=== PATIENT | male | born 1950 | race Caucasian/White ===

== ENCOUNTER → 2019-01-13 12:10 | Outpatient (CLI) | payer MEDICARE, SELFPAY ==
--- NOTE | 2019-01-13 12:13 | DI.RAD.S_ITS ---
PROCEDURE: XR KNEE LT 3V INDICATIONS: Knee pain TECHNIQUE: 3 views of the knee were acquired. COMPARISON: [facility], , KNEE 3V LEFT, 03/17/2007, 9:28. FINDINGS: Bones: No fractures or dislocations. No suspicious bony lesions. There is chondrocalcinosis. There is tricompartmental knee joint degeneration, most pronounced in the patellofemoral joint. Soft tissues: No joint effusion. Probable intra-articular body in the anterior lateral aspect of the knee joint. IMPRESSION: 1. Degenerative joint disease and chondrocalcinosis. Differential diagnosis includes CPPD. Recommend clinical correlation. 2. Possible intra-articular body in the anterior lateral aspect of knee joint. Dictated by: Jamin Ngo M.D. on 01/13/2019 at 17:12 Approved by: Jamin Ngo M.D. on 01/13/2019 at 17:13
--- NOTE | 2019-01-13 12:13 | DI.RAD.S_ITS ---
PROCEDURE: XR KNEE RT 3V INDICATIONS: Knee pain TECHNIQUE: 3 views of the knee were acquired. COMPARISON: [facility], , KNEE 3V RIGHT, 03/17/2007, 9:41. None. FINDINGS: Bones: No fractures or dislocations. No suspicious bony lesions. There is chondrocalcinosis. Tricompartmental joint space narrowing and osteophyte formation, most pronounced in the patellofemoral joint, increased compared to 03/17/2007. Soft tissues: No joint effusion. No suspicious soft tissue calcifications. IMPRESSION: Chondrocalcinosis and degenerative changes in right knee. CPPD is a diagnostic possibility. Recommend clinical correlation. Dictated by: Jamin Ngo M.D. on 01/13/2019 at 17:09 Approved by: Jamin Ngo M.D. on 01/13/2019 at 17:11
== END ==
PROVIDERS: Family Provider Family Medicine; PCP Family Medicine; Visit Provider Family Medicine
DX: M25.561 Pain in right knee (principal); M25.562 Pain in left knee; M17.12 Unilateral primary osteoarthritis, left knee; M11.262 Other chondrocalcinosis, left knee; M11.261 Other chondrocalcinosis, right knee
CPT/HCPCS: 73562

== ENCOUNTER → 2019-06-29 12:32 | Outpatient (CLI) | payer MEDICARE, SELFPAY ==
[2019-06-29 13:05] LABS: Add Manual Diff / Slide Review NO; Basophils Absolute Auto 0 /uL (0-100); Basophils Percent Auto 0.2 % (0-2); Eosinophils Absolute Auto 0 /uL (0-450); Eosinophils Percent Auto 0.1 % (2-4); Hematocrit 44.4 % (41-53); Hemoglobin 15.2 g/dL (13.5-17.5); Lymphocytes Absolute Auto 400 /uL (1100-4500); Lymphocytes Percent Auto 2.5 % (25-40); Mean Corpuscular HGB Conc 34.2 % (30-36); Mean Corpuscular Hemoglobin 32.8 PG (26-34); Mean Corpuscular Volume 95.9 fL (80-100); Monocytes Absolute Auto 700 /uL (0-900); Monocytes Percent Auto 4.4 % (3-14); Neutrophils Absolute Auto 15400 /uL (1500-7000); Neutrophils Percent Auto 92.8 % (50-75); Platelet Count 308 X10^3/uL (150-400); Red Blood Cell Count 4.63 X10^6/uL (4.5-5.9); Red Cell Distribution Width 13.3 % (11.6-14.8); White Blood Cell Count 16.6 X10^3/uL (4.5-11.0)
[2019-06-29 13:48] LABS: Alanine Aminotransferase 25 IU/L (<50); Albumin 4.7 g/dL (3.5-5.0); Albumin Globulin Ratio 1.7 (1.0-2.8); Alkaline Phosphatase 77 U/L (38-126); Aspartate Aminotransferase 26 IU/L (17-59); BUN Creatinine Ratio 19.1 (6-22); Bilirubin Total 1.4 mg/dL (0.2-1.3); Blood Urea Nitrogen 21 mg/dL (9-20); Calcium 10.1 mg/dL (8.4-10.2); Carbon Dioxide 24 mmol/L (22-32); Chloride 102 mmol/L (98-107); Cholesterol 204 mg/dL (140-199); Estimated Glomerular Filt Rate > 60.0 mL/min (>60); Globulin 2.7 g/dL (1.7-4.1); Glucose 123 mg/dL (80-110); HDL Cholesterol 74 mg/dL (40-60); HEMOLYSIS < 15 (0-50); LDL Cholesterol Calculated 121 mg/dL (<100); Potassium 4.4 mmol/L (3.4-5.1); Sodium 138 mmol/L (137-145); Total Protein 7.4 g/dL (6.3-8.2); Triglycerides 46 mg/dL (35-150)
[2019-06-29 14:17] LABS: Prostate Specific Antigen Scrn 15.3 ng/mL (0.1-4.0)
== END ==
PROVIDERS: PCP Family Medicine; Visit Provider Family Medicine
DX: Z12.5 Encounter for screening for malignant neoplasm of prostate (principal); Z13.220 Encounter for screening for lipoid disorders; Z13.6 Encounter for screening for cardiovascular disorders; R30.0 Dysuria
CPT/HCPCS: 36415; 80053; 80061; 85025; 87077; 87086; 87186; G0103

== ENCOUNTER → 2019-07-23 12:52 | Outpatient (CLI) | payer MEDICARE, SELFPAY ==
[2019-07-23 13:43] LABS: Cholesterol 207 mg/dL (140-199); Glucose 111 mg/dL (80-110); HDL Cholesterol 63 mg/dL (40-60); LDL Cholesterol Calculated 130 mg/dL (<100); Triglycerides 72 mg/dL (35-150)
[2019-07-23 14:03] LABS: Free T4, Direct Thyroxine 1.13 ng/dL (0.78-2.19)
[2019-07-23 14:17] LABS: Thyroid Stimulating Hormone 0.97 uIU/mL (0.47-4.68)
== END ==
PROVIDERS: Family Provider Family Medicine; PCP Family Medicine; Visit Provider Nurse Practitioner
DX: E78.5 Hyperlipidemia, unspecified (principal); R73.09 Other abnormal glucose; Z79.899 Other long term (current) drug therapy; Z87.440 Personal history of urinary (tract) infections
CPT/HCPCS: 36415; 80061; 81001; 82947; 84439; 84443; 84481

== ENCOUNTER → 2019-07-23 13:59 | Outpatient (CLI) | payer MEDICARE, SELFPAY ==
[2019-07-23 14:32] LABS: Appearance Urine UA CLEAR; Bilirubin Urine UA NEGATIVE (NEGATIVE); Color Urine UA YELLOW; Glucose Urine UA NEGATIVE (Negative); Ketones Urine UA NEGATIVE (NEGATIVE); Leukocyte Esterase Urine UA NEGATIVE (NEGATIVE); Nitrite Urine UA NEGATIVE (Negative); Occult Blood Urine UA TRACE-INTACT (Negative); Protein Urine UA NEGATIVE (Negative); Urobilinogen Urine UA 0.2 E.U./dL (0.2)
[2019-07-23 14:50] LABS: Bacteria Urine Few (2-10); RBC Urine 0-1/HPF (0-5/HPF); WBC Urine 1-5/HPF (0-5/HPF)
[2019-07-23 14:51] LABS: Culture Indicated Urine Cult Not Indicated
== END ==
PROVIDERS: PCP Nurse Practitioner; Visit Provider Nurse Practitioner
DX: Z87.440 Personal history of urinary (tract) infections (principal)
CPT/HCPCS: 81001

== ENCOUNTER → 2019-07-30 12:18 | Outpatient (CLI) | payer MEDICARE, SELFPAY | PROVIDERS: PCP Nurse Practitioner; Visit Provider Family Medicine | DX: R35.0 Frequency of micturition (principal) | CPT/HCPCS: 87086 ==

== ENCOUNTER → 2019-07-30 | Outpatient (CLI) | payer MEDICARE, SELFPAY | PROVIDERS: PCP Nurse Practitioner; Visit Provider Family Medicine ==

== ENCOUNTER → 2020-04-30 09:45 | Outpatient (CLI) | payer MEDICARE, SELFPAY ==
[2020-04-30 11:17] LABS: Cholesterol 182 mg/dL (140-199); HDL Cholesterol 73 mg/dL (40-60); LDL Cholesterol Calculated 96 mg/dL (<100); Triglycerides 63 mg/dL (35-150)
== END ==
PROVIDERS: PCP Family Medicine; Referring Provider Family Medicine; Visit Provider Family Medicine
DX: E78.5 Hyperlipidemia, unspecified (principal)
CPT/HCPCS: 36415; 80061; 84153

== ENCOUNTER → 2020-05-03 12:14 | Outpatient (CLI) | payer MEDICARE, SELFPAY ==
--- NOTE | 2020-05-03 12:19 | DI.RAD.S_ITS ---
PROCEDURE: XR LUMBAR SPINE 2-3V INDICATIONS: LOW BACK PAIN TECHNIQUE: 3 views of the lumbar spine were acquired. COMPARISON: [facility], , CT THORAX/ABDOMEN/PELVIS WITH CONTRAST, 10/10/2004, 12:06. FINDINGS: Bones: 5 [id number] vertebrae are present. There is normal bony alignment. Moderate to severe disc space narrowing at L5-S1, moderate L3-4, mild L4-5. Severe foraminal narrowing is noted L5-S1, moderate L4-5. No vertebral body compression fractures. No suspicious bony lesions. Soft tissues: Overlying bowel gas pattern is normal. No suspicious soft tissue calcifications. IMPRESSION: Degenerative changes most notable at L5-S1. Dictated by: Estrella Melgoza M.D. on 05/03/2020 at 16:21 Approved by: Estrella Melgoza M.D. on 05/03/2020 at 16:22
== END ==
PROVIDERS: PCP Family Medicine; Referring Provider Family Medicine; Visit Provider Family Medicine
DX: M54.5 Low back pain (principal); M47.817 Spondylosis without myelopathy or radiculopathy, lumbosacral region
CPT/HCPCS: 72100

== ENCOUNTER 2021-01-02 09:59 | Emergency (ER) | payer MEDICARE, SELFPAY ==
[2021-01-02 10:15] VITALS: BP 154/102; PULSE 74; RESP 16; TEMP 36.6; O2SAT 98; BMI 27.4
[2021-01-02 10:19] LABS: Add Manual Diff / Slide Review NO; Basophils Absolute Auto 0 /uL (0-100); Basophils Percent Auto 0.4 % (0-2); Eosinophils Absolute Auto 100 /uL (0-450); Eosinophils Percent Auto 1.4 % (2-4); Hematocrit 43.9 % (41-53); Hemoglobin 14.9 g/dL (13.5-17.5); Lymphocytes Absolute Auto 1100 /uL (1100-4500); Lymphocytes Percent Auto 13.5 % (25-40); Mean Corpuscular HGB Conc 33.9 % (30-36); Mean Corpuscular Hemoglobin 32.4 PG (26-34); Mean Corpuscular Volume 95.5 fL (80-100); Monocytes Absolute Auto 600 /uL (0-900); Neutrophils Absolute Auto 6200 /uL (1500-7000); Neutrophils Percent Auto 76.7 % (50-75); Platelet Count 267 X10^3/uL (150-400); Red Cell Distribution Width 13.6 % (11.6-14.8); White Blood Cell Count 8.1 X10^3/uL (4.5-11.0)
[2021-01-02 10:26] LABS: INR 1.2 (0.9-1.3); Prothrombin Time 13.3 SECONDS (10.1-12.7)
[2021-01-02 10:29] LABS: PTT Partial Thromboplastin Tim 32 SECONDS (26.4-36.2)
[2021-01-02 10:31] LABS: Alanine Aminotransferase 22 IU/L (<50); Albumin 4.3 g/dL (3.5-5.0); Albumin Globulin Ratio 1.2 (1.0-2.8); Alkaline Phosphatase 59 U/L (38-126); Aspartate Aminotransferase 25 IU/L (17-59); Bilirubin Total 1.5 mg/dL (0.2-1.3); Blood Urea Nitrogen 17 mg/dL (9-20); Carbon Dioxide 26 mmol/L (22-32); Chloride 105 mmol/L (98-107); Estimated Glomerular Filt Rate > 60.0 mL/min (>60); Globulin 3.5 g/dL (1.7-4.1); Glucose 119 mg/dL (80-110); HEMOLYSIS < 15 (0-50); Lipase 30 U/L (23-300); Sodium 137 mmol/L (137-145); Total Protein 7.8 g/dL (6.3-8.2)
--- NOTE | 2021-01-02 10:32 | ED.GENADULT ---
HPI - General Adult General Chief complaint: Abdominal Pain Stated complaint: diverticulitis Time Seen by Provider: 01/02/21 10:05 Source: patient Mode of arrival: Ambulatory Limitations: no limitations History of Present Illness HPI narrative: Patient is a 70-year-old male with a history of diverticulitis. Has had multiple episodes of diverticulitis over his lifetime. His most recent 1 was 2 months ago. He has self-treated himself with antibiotics in the past. These have been left over from prior episodes of diverticulitis and he is also purchase them online. On Saturday he had an onset of lower abdominal discomfort. Had some constipation but is not having small amounts of diarrhea. No urinary symptoms. No vomiting. No fevers. He states that this feels like prior episodes of diarrhea and he is ?100% ?convinced of it. He was seen in the walk-in clinic and was sent to the emergency department. Related Data Previous Rx's Medication Instructions Recorded lovastatin 20 mg tablet 20 mg PO HS #90 tab 11/20/19 lidocaine 5 % topical patch 1 patch TOP DAILY #15 each 03/14/20 amoxicillin-pot clavulanate 1 tab PO BID 7 Days #14 tab 01/02/21 [Augmentin] Allergies Allergy/AdvReac Type Severity Reaction Status Date / Time No Known Drug Allergies Allergy Verified 01/02/21 10:02 Review of Systems Constitutional Constitutional: Denies fever(s) Cardiovascular Cardiovascular: Reports system reviewed and no additional complaints, except as documented Respiratory Respiratory: Reports system reviewed and no additional complaints, except as documented Gastrointestinal Gastrointestinal: Reports abdominal pain, Reports constipation, Reports diarrhea, Denies nausea and Denies vomiting Genitourinary Genitourinary: Denies dysuria and Denies testicular pain Genitourinary: Denies dysuria Musculoskeletal Musculoskeletal: Denies arthralgias and Denies myalgias Integumentary/Breasts Skin/Breast: Denies rash Neurologic Neurologic: Reports system reviewed and no additional complaints, except as documented Hematologic/Lymphatic On Anticoagulants: No Allergic/Immunologic Allergic/Immunologic: Reports system reviewed and no additional complaints, except as documented Patient History Medical History Chicken pox (~1954) E. coli UTI Hearing loss (~1979) Mumps (~1953) Tinnitus (~1979) Family History Brother Heart disease Father Heart disease Grandfather Heart disease Grandmother Stroke Mother Stroke Grandfather Heart disease Grandmother Heart disease Social History Smoking Status: Never smoker Smoking Status: Never smoker alcohol intake frequency: 3 or more drinks per day Substance Use Type: does not use Exam Initial Vital Signs Initial Vital Signs: Vital Signs Temperature 97.8 F 01/02/21 10:15 Pulse Rate 74 01/02/21 10:15 Respiratory Rate 16 01/02/21 10:15 Blood Pressure 154/102 H 01/02/21 10:15 Pulse Oximetry 98 01/02/21 10:15 Const General: cooperative and comfortable Limitations: mental status not altered HENMT Head: normal to inspection and normocephalic Resp Effort & Inspection: normal respiratory effort Auscultation: clear to auscultation bilaterally Cardio Rate: regular rate Rhythm: regular rhythm GI Inspection: non-distended Palpation: soft and tender (Suprapubic tenderness) Skin Lesions: no lesions Rashes: no rashes Neuro General: patient alert and patient awake Cognition: normal cognition Speech: speech normal Extrem General: normal to inspection and capillary refill normal Psych Appearance: grossly normal and well kempt Course Orders Ordered: ED Orders 01/02/21 10:10 Complete Blood Count AUTO DIFF Stat Comprehensive Metabolic Panel Stat Lipase Stat Partial Thromboplastin Time Stat Prothrombin Time INR Stat Vital Signs Vital signs: Vital Signs - 8 hr 01/02/21 10:15 Temperature 97.8 F Pulse Rate 74 Respiratory Rate 16 Blood Pressure 154/102 H Pulse Oximetry 98 Medical Decision Making Lab Data Lab results reviewed: Yes I reviewed the patient's lab results. Result diagrams: 01/02/21 10:10 01/02/21 10:10 Labs: Lab Results 01/02/21 01/02/21 01/02/21 Range/Units 10:10 10:10 10:10 WBC 8.1 (4.5-11.0) X10^3/uL RBC 4.60 (4.5-5.9) X10^6/uL Hgb 14.9 (13.5-17.5) g/dL Hct 43.9 (41-53) % MCV 95.5 (80-100) fL MCH 32.4 (26-34) PG MCHC 33.9 (30-36) % RDW 13.6 (11.6-14.8) % Plt Count 267 (150-400) X10^3/uL Neut % (Auto) 76.7 H (50-75) % Lymph % (Auto) 13.5 L (25-40) % [place] % (Auto) 8.0 (3-14) % Eos % (Auto) 1.4 L (2-4) % Baso % (Auto) 0.4 (0-2) % Neut # (Auto) 6200 (7834-6827) /uL Lymph # (Auto) 1100 (7578-7825) /uL [place] # (Auto) 600 (0-900) /uL Eos # (Auto) 100 (0-450) /uL Baso # (Auto) 0 (0-100) /uL PT 13.3 H (10.1-12.7) SECONDS INR 1.2 (0.9-1.3) APTT 32 (26.4-36.2) SECONDS Sodium 137 (137-145) mmol/L Potassium 4.0 (3.4-5.1) mmol/L Chloride 105 (98-107) mmol/L Carbon Dioxide 26 (22-32) mmol/L BUN 17 (9-20) mg/dL Creatinine 1.06 (0.66-1.25) mg/dL Estimated GFR > 60.0 (>60) mL/min BUN/Creatinine Ratio 16.0 (6-22) Glucose 119 H (80-110) mg/dL Calcium 10.0 (8.4-10.2) mg/dL Total Bilirubin 1.5 H (0.2-1.3) mg/dL AST 25 (17-59) IU/L ALT 22 (<50) IU/L Alkaline Phosphatase 59 (38-126) U/L Total Protein 7.8 (6.3-8.2) g/dL Albumin 4.3 (3.5-5.0) g/dL Globulin 3.5 (1.7-4.1) g/dL Albumin/Globulin Ratio 1.2 (1.0-2.8) Lipase 30 (23-300) U/L MDM Narrative Medical decision making narrative: Patient does have a benign abdominal exam but does have tenderness in the suprapubic region. Labs are unremarkable. Had a discussion with him regarding his symptoms. We did discuss that without a CT scan we could potentially be missing other etiologies or complications from diverticulitis. He expressed understanding of this. After our discussion we will hold on a CT scan for now. I will prescribe him Augmentin. He thinks that he has been on this medication in the past. He was given return precautions. He expressed understanding agreement. Discharge Plan Departure Patient Disposition: Home Clinical Impression: Abdominal pain, Diverticulitis Instructions: DI for Diverticulitis Activity Restrictions/Additional Instructions: After our discussion today the plan will be to presumptively treat you for diverticulitis. I recommend that you take the entire course of antibiotics as directed. Contact her primary provider for follow-up. Return to the emergency department for any new or worsening symptoms Prescriptions: New amoxicillin-pot clavulanate [Augmentin] 875-125 mg tablet 1 tab PO BID 7 Days Qty: 14 RF: 0 No Action lovastatin 20 mg tablet 20 mg PO HS Qty: 90 RF: 3 lidocaine [Lidoderm] 5 % adhesive patch,medicated 1 patch TOP DAILY Qty: 15 RF: 1 Referrals: Jimbo Pan DO [Primary Care Provider] -
[2021-01-02 10:50] VITALS: BP 162/94; PULSE 82; RESP 15; O2SAT 99
== END 2021-01-02 10:51 | disposition home or self-care (01) ==
PROVIDERS: Emergency Provider Emergency Medicine; PCP Family Medicine
DX: K57.92 Diverticulitis of intestine, part unspecified, without perforation or abscess without bleeding (principal)
CPT/HCPCS: 36415; 80053; 83690; 85025; 85610; 85730; 99283

== ENCOUNTER → 2021-04-07 09:56 | Outpatient (CLI) | payer MEDICARE, SELFPAY ==
[2021-04-07 11:30] LABS: COVID19 -Nasal RAPID Negative (Negative)
== END ==
PROVIDERS: PCP Family Medicine; Visit Provider Surgery
DX: Z01.812 Encounter for preprocedural laboratory examination (principal); Z20.822 Contact with and (suspected) exposure to COVID-19
CPT/HCPCS: 87635; C9803

== ENCOUNTER 2021-04-10 09:45 | Day surgery (SDC) | payer MEDICARE, SELFPAY ==
--- NOTE | 2021-04-10 | PATH_ITS ---
[facility] Accession Number: [id number] . 01 Material submitted: . esophagus, E-G Junction - GE JUNCTION BIOPSY . 02 Diagnosis: Gastroesophageal Junction, Biopsy: Squamous mucosa with no diagnostic abnormality. Intraepithelial eosinophils are not increased. Negative for dysplasia and malignancy. [facility] 04/12/2021 1050 Local . 02 Electronically signed: . Katy Krause MD, Pathologist NPI- [id number] . 01 Gross description: . GE JUNCTION BIOPSY: Received in formalin are 2 fragment(s) of vincent, soft tissue measuring 0.2 x 0.2 x 0.2 cm to 0.2 x 0.2 x 0.1 cm submitted entirely in 1 cassette(s) /ZACK 04/11/2021 0515 Local . 02 Pathologist provided ICD-10: R13.19 . 02 CPT . 995576 Performed at: 01 [facility] [address] [facility], [place], [place] [id number] MD Gary Rice MD Phone: [phone] Performed at: 02 [facility] [place] [address] [place], [place] [id number] MD Katy Krause MD Phone: [phone]
[2021-04-10 10:09] VITALS: BP 143/84; PULSE 65; RESP 14; TEMP 36.2; O2SAT 99
[2021-04-10] MEDS: LACTATED RINGERS 1,000 ML 200 ML IV (10:16)
--- NOTE | 2021-04-10 10:58 | PM.HP.1 ---
History of Present Illness History of Present Illness Date Patient Seen: 04/10/21 Time Patient Seen: 10:59 Chief complaint: SDC Narrative: 71-year-old man here for diagnostic esophagoduodenoscopy secondary to esophageal dysphagia. Please refer to the H& P from February 2021 for further detail. The been no interval changes in health. Patient History Medical History BPH loc w urin obs/LUTS Chicken pox (~1954) Diverticulitis E. coli UTI Elevated PSA GERD (gastroesophageal reflux disease) Hearing loss (~1979) Hyperlipidemia Mumps (~1953) Tinnitus (~1979) Family & Social History Family History Brother Heart disease Diabetes mellitus Father Heart disease Hyperlipidemia Mental health problem Grandfather Heart disease Grandmother Stroke Mother Stroke Diabetes mellitus Grandfather Heart disease Grandmother Heart disease Sister Heart disease Social History: household members spouse Tobacco & Substance use: Smoking Status Never smoker alcohol intake current alcohol intake frequency 0-2 drinks per day Substance Use Type does not use Meds Home Medications and Allergies Home Medications Medication Instructions Recorded Confirmed Type lovastatin 10 mg tablet 10 mg PO BEDTIME #90 tab 01/13/21 04/10/21 Rx tamsulosin 0.4 mg capsule 0.4 mg PO DAILY 01/13/21 04/10/21 History cetirizine 10 mg tablet (Aller-Jackie) 10 mg PO DAILY PRN 03/06/21 04/10/21 History cholecalciferol (vitamin D3) 50 50 mcg PO DAILY 03/06/21 04/10/21 History mcg (2,000 unit) capsule famotidine 20 mg tablet 20 mg PO DAILY 03/06/21 04/10/21 History multivitamin 1 tab PO DAILY 03/06/21 04/10/21 History vitamin B complex 1 tab PO DAILY 03/06/21 04/10/21 History Allergies Allergy/AdvReac Type Severity Reaction Status Date / Time No Known Drug Allergies Allergy Verified 04/10/21 10:01 Review of Systems Review of Systems ROS: Yes All systems reviewed with the patient and are negative except as otherwise documented Exam Vital Signs (past 8 hours): - 04/10/21 10:09 Temperature 97.1 F L Pulse Rate 65 Respiratory Rate 14 Blood Pressure 143/84 H Pulse Oximetry 99 Oxygen Delivery Method Room Air Narrative Exam Narrative: Constitutional-he is oriented to person, place and time. No apparent distress Cardiovascular- regular rate, no peripheral edema Pulmonary-unlabored respiratory effort, no audible wheezing Abdominal-soft, non-tender, non-distended Musculoskeletal-no cyanosis or clubbing Neurological-nonfocal, normal strength throughout, normal gait. Skin-warm and dry Assessment & Plan Assessment & Plan narrative: 71-year-old man with esophageal dysphagia here for esophagoduodenoscopy. Technical details of the procedure were discussed with the patient. Procedural risks including perioperative complications, bleeding, infection, intestinal perforation were discussed. His questions have been answered and he is in agreement with this plan.
[2021-04-10] MEDS: fentaNYL 250 MCG/5 ML INJ IV (11:03)
[2021-04-10] MEDS: MIDAZOLAM 5 MG/5 ML VIAL IV (11:03)
[2021-04-10] MEDS: LIDOCAINE 4% SOLN 50 ML 20 ML TOP (11:03)
--- NOTE | 2021-04-10 11:12 | PM.OP.ENDO ---
Operative Date/Time/Diagnoses Date of procedure: 04/10/21 Time of procedure: 11:14 Pre-op diagnosis: esophageal dysphagia Post-op diagnosis: same Procedure & Clinicians Study performed: esophagoduodenoscopy Same procedure as scheduled: Yes Indications: esophageal dysphagia Surgeon: Darren Napoles Procedure Notes Procedure in detail: Patient placed in left lateral decubitus position. Time out was performed. Procedural sedation was administered with Versed and Fentanyl. A bite block was placed. the scope was inserted into the mouth and advanced through the esophagus and into the stomach. The pylorus was intubated and the duodenum was normal to the 2nd portion. The scope was retroflexed within the stomach and there was no hiatal hernia. No ulcers, or gastritis. The scope was withdrawn into the esophagus the Z line was seen at 40 cm from the incisions. There were no esophageal strictures there was esophagitis at the GE junction which was biopsy using forceps. Stomach was desufflated and scope removed. Patient tolerated procedure well. Specimen(s): other (GE junction) Complications: none Impression: Esophagitis Post-procedure Plan for aftercare: Start omeprazole 20 mg twice daily discontinue Pepcid Disposition: same day surgery
[2021-04-10 11:15] VITALS: BP 116/75; PULSE 63; RESP 13; TEMP 36.2; O2SAT 96
[2021-04-10 11:20] VITALS: BP 118/75; PULSE 58; RESP 12; O2SAT 97
[2021-04-10 11:25] VITALS: BP 112/71; PULSE 57; RESP 10; O2SAT 97
[2021-04-10 11:34] VITALS: BP 123/77; PULSE 58; RESP 12; TEMP 36.4; O2SAT 98
== END 2021-04-10 11:55 | disposition home or self-care (01) ==
PROVIDERS: PCP Family Medicine; Referring Provider Surgery; Visit Provider Surgery
PROC: 0DJ08ZZ Inspection of Upper Intestinal Tract, Via Natural or Artificial Opening Endoscopic (ICD-10-PCS; CPT 43235; principal; 2021-04-10 10:45)
DX: K21.00 Gastro-esophageal reflux disease with esophagitis, without bleeding (principal); E78.5 Hyperlipidemia, unspecified
CPT/HCPCS: 43239; J2250; J3010

== ENCOUNTER → 2021-06-06 10:54 | Outpatient (CLI) | payer OTHER, MEDICARE, SELFPAY ==
--- NOTE | 2021-06-06 11:00 | DI.RAD.S_ITS ---
PROCEDURE: XR LUMBAR SPINE 2-3V INDICATIONS: L I back injury TECHNIQUE: 3 views of the lumbar spine were acquired. COMPARISON: [facility], CR, XR LUMBAR SPINE 2-3V, 05/03/2020, 12:16. FINDINGS: Bones: 5 [id number] vertebrae are present. There is normal bony alignment. No vertebral body compression fractures. The disc space heights are essentially maintained. Facet arthrosis causing mild neural foraminal narrowing at L5-S1. No suspicious bony lesions. Soft tissues: Overlying bowel gas pattern is normal. No suspicious soft tissue calcifications. IMPRESSION: No acute abnormality. Dictated by: German Alarcon M.D. on 06/06/2021 at 12:30 Approved by: German Alarcon M.D. on 06/06/2021 at 12:32
== END ==
PROVIDERS: PCP Family Medicine; Referring Provider Nurse Practitioner Family; Visit Provider Nurse Practitioner Family
DX: M54.50 Low back pain, unspecified (principal); G89.29 Other chronic pain
CPT/HCPCS: 72100

== ENCOUNTER → 2021-07-03 08:21 | Outpatient (CLI) | payer MEDICARE, SELFPAY ==
[2021-07-03 08:55] LABS: Add Manual Diff / Slide Review NO; Basophils Absolute Auto 0 /uL (0-100); Basophils Percent Auto 0.9 % (0-2); Eosinophils Absolute Auto 100 /uL (0-450); Eosinophils Percent Auto 3.3 % (2-4); Hematocrit 42.1 % (41-53); Hemoglobin 14.3 g/dL (13.5-17.5); Lymphocytes Absolute Auto 1200 /uL (1100-4500); Lymphocytes Percent Auto 28.8 % (25-40); Mean Corpuscular HGB Conc 34.1 % (30-36); Mean Corpuscular Hemoglobin 32.4 PG (26-34); Monocytes Absolute Auto 400 /uL (0-900); Monocytes Percent Auto 9.9 % (3-14); Neutrophils Absolute Auto 2400 /uL (1500-7000); Neutrophils Percent Auto 57.1 % (50-75); Platelet Count 279 X10^3/uL (150-400); Red Blood Cell Count 4.43 X10^6/uL (4.5-5.9); White Blood Cell Count 4.2 X10^3/uL (4.5-11.0)
[2021-07-03 09:08] LABS: Alanine Aminotransferase 24 IU/L (<50); Albumin 4.2 g/dL (3.5-5.0); Albumin Globulin Ratio 1.6 (1.0-2.8); Alkaline Phosphatase 67 U/L (38-126); Aspartate Aminotransferase 27 IU/L (17-59); BUN Creatinine Ratio 21.7 (6-22); Bilirubin Total 0.8 mg/dL (0.2-1.3); Blood Urea Nitrogen 23 mg/dL (9-20); Calcium 9.4 mg/dL (8.4-10.2); Carbon Dioxide 24 mmol/L (22-32); Chloride 109 mmol/L (98-107); Estimated Glomerular Filt Rate > 60.0 mL/min (>60); Globulin 2.6 g/dL (1.7-4.1); Glucose 115 mg/dL (80-110); HEMOLYSIS < 15 (0-50); Potassium 4.4 mmol/L (3.4-5.1); Sodium 139 mmol/L (137-145); Total Protein 6.8 g/dL (6.3-8.2)
[2021-07-03 09:21] LABS: Hemoglobin A1C% w Est Avg Glu 5.5 % (4.0-6.0)
[2021-07-03 09:39] LABS: Prostate Specific Antigen Scrn 4.74 ng/mL (0.1-4.0)
== END ==
PROVIDERS: PCP Family Medicine; Referring Provider Family Medicine; Visit Provider Family Medicine
DX: E78.2 Mixed hyperlipidemia (principal); R73.01 Impaired fasting glucose; Z12.5 Encounter for screening for malignant neoplasm of prostate; N40.1 Benign prostatic hyperplasia with lower urinary tract symptoms; R97.20 Elevated prostate specific antigen [PSA]
CPT/HCPCS: 36415; 80053; 83036; 85025; G0103

== ENCOUNTER → 2022-04-07 09:48 | Outpatient (CLI) | payer MEDICARE, SELFPAY ==
[2022-04-07 12:31] LABS: Add Manual Diff / Slide Review NO; Basophils Absolute Auto 0 /uL (0-100); Basophils Percent Auto 0.6 % (0-2); Eosinophils Absolute Auto 100 /uL (0-450); Eosinophils Percent Auto 2.8 % (2-4); Hematocrit 41.1 % (41-53); Hemoglobin 14.3 g/dL (13.5-17.5); Lymphocytes Absolute Auto 1100 /uL (1100-4500); Mean Corpuscular HGB Conc 34.7 % (30-36); Mean Corpuscular Hemoglobin 33.2 PG (26-34); Mean Corpuscular Volume 95.9 fL (80-100); Monocytes Absolute Auto 400 /uL (0-900); Monocytes Percent Auto 9.8 % (3-14); Neutrophils Absolute Auto 2400 /uL (1500-7000); Neutrophils Percent Auto 58.8 % (50-75); Platelet Count 261 X10^3/uL (150-400); Red Blood Cell Count 4.29 X10^6/uL (4.5-5.9); White Blood Cell Count 4.1 X10^3/uL (4.5-11.0)
[2022-04-07 12:46] LABS: Alanine Aminotransferase 20 IU/L (<50); Albumin Globulin Ratio 1.5 (1.0-2.8); Alkaline Phosphatase 64 U/L (38-126); Aspartate Aminotransferase 23 IU/L (17-59); BUN Creatinine Ratio 22.8 (6-22); Blood Urea Nitrogen 23 mg/dL (9-20); Calcium 9.3 mg/dL (8.4-10.2); Carbon Dioxide 25 mmol/L (22-32); Chloride 107 mmol/L (98-107); Cholesterol 195 mg/dL (140-199); Estimated Glomerular Filt Rate > 60 mL/min (>60); Globulin 2.7 g/dL (1.7-4.1); Glucose 110 mg/dL (80-110); HDL Cholesterol 63 mg/dL (40-60); HEMOLYSIS < 15 (0-50); LDL Cholesterol Calculated 113 mg/dL (<100); Potassium 4.5 mmol/L (3.4-5.1); Sodium 138 mmol/L (137-145); Total Protein 6.7 g/dL (6.3-8.2); Triglycerides 95 mg/dL (35-150)
[2022-04-07 13:13] LABS: Prostate Specific Antigen Scrn 4.84 ng/mL (0.1-4.0)
== END ==
PROVIDERS: PCP Family Medicine; Referring Provider Family Medicine; Visit Provider Family Medicine
DX: E78.5 Hyperlipidemia, unspecified (principal); Z12.5 Encounter for screening for malignant neoplasm of prostate; R97.20 Elevated prostate specific antigen [PSA]
CPT/HCPCS: 36415; 80053; 80061; 85025; G0103

== ENCOUNTER → 2022-06-22 07:48 | Outpatient (CLI) | payer MEDICARE, SELFPAY ==
[2022-06-22 08:26] LABS: Estimated Glomerular Filt Rate > 60 mL/min (>60)
--- NOTE | 2022-06-22 15:42 | DI.CT.S_ITS ---
PROCEDURE: CT IVP A/P W/WO INDICATIONS: GROSS HEMATURIA TECHNIQUE: Optional 5 mm thick noncontrast images acquired from the diaphragm to the symphysis pubis. After the administration of intravenous contrast, 5 mm thick images acquired from the diaphragm to the symphysis pubis after a 10-minute delay. 2 mm thick coronal and sagittal reformats were then performed of the kidneys and ureters. For radiation dose reduction, the following was used: automated exposure control, adjustment of mA and/or kV according to patient size. COMPARISON: [facility], CT, ABDOMEN/PELVIS WITH CONTRAST, 12/13/2009, 13:50. FINDINGS: Image quality: Excellent Lower chest: Basal atelectasis/scarring. Solid organs: The liver is not fully visualized. Posterior capsule calcification. Subcentimeter lesions are too small to characterize. Gallbladder and biliary tree are unremarkable. There is a small duodenal diverticulum. No pancreatic ductal dilation. No splenomegaly. No adrenal nodules. Bosniak 1 and 2 renal lesions are present, for which no dedicated followup is necessary per 2019 proposed guidelines. A 7 centimeters simple cyst is seen in the lower pole of the right kidney. No hydronephrosis. No obstructing or measurable nonobstructing calculi. No filling defects in the ureters. Mild perivesicular stranding and thick-walled urinary bladder with small trabeculations. Prostatomegaly and heterogeneous enhancement. These are not well evaluated. Suspected small cystic lesion in the posterior midline prostate measuring 7 millimeters. Vessels and lymph nodes: Prominent, non-specific lymph nodes are present that are not enlarged by size criteria. No abdominal aortic aneurysm. Index node adjacent to the rectosigmoid junction measures 8 millimeters. Bowel and peritoneum: No bowel obstruction. No pathologic ascites. There are colonic diverticula with probably chronic thickening of the sigmoid colon. Body wall: Tiny fat containing umbilical hernia Pelvis: Described above. Small fat containing left inguinal hernia. Bones: No acute or suspicious osseous abnormality. IMPRESSION: No upper tract disease is identified. A dominant simple renal cyst is seen in the right lower pole. No hydronephrosis. Lower tract disease can be better evaluated with cystoscopy. There is mild bladder wall thickening, prostatomegaly, prostate heterogeneous enhancement, and mild perivesicular stranding. There is also a subcentimeter suspected prostate utricle cyst. In addition, prominent borderline enlarged pelvic lymph nodes are present, most notably adjacent to the right rectosigmoid junction. These are indeterminate. Consider correlation with history of age-appropriate colonoscopy for the above described bowel findings. Dictated by: Vlad Jose M.D. on 06/22/2022 at 17:04 Approved by: Vlad Jose M.D. on 06/22/2022 at 17:14
== END ==
PROVIDERS: Radiology Diagnostic Radiology; PCP Family Medicine; Referring Provider Urology; Visit Provider Urology
DX: Z00.00 Encounter for general adult medical examination without abnormal findings (principal); K57.90 Diverticulosis of intestine, part unspecified, without perforation or abscess without bleeding; N28.1 Cyst of kidney, acquired; R59.0 Localized enlarged lymph nodes; Z87.898 Personal history of other specified conditions
CPT/HCPCS: 36415; 74178; 82565

== ENCOUNTER → 2023-06-24 09:20 | Outpatient (CLI) | payer MEDICARE, SELFPAY ==
[2023-06-24 09:39] LABS: Add Manual Diff / Slide Review NO; Basophils Absolute Auto 0 /uL (0-100); Basophils Percent Auto 0.8 % (0-2); Eosinophils Absolute Auto 100 /uL (0-450); Eosinophils Percent Auto 2.3 % (2-4); Hematocrit 40.5 % (41-53); Hemoglobin 13.9 g/dL (13.5-17.5); Lymphocytes Absolute Auto 1400 /uL (1100-4500); Lymphocytes Percent Auto 28.9 % (25-40); Mean Corpuscular HGB Conc 34.3 % (30-36); Mean Corpuscular Hemoglobin 33.2 PG (26-34); Mean Corpuscular Volume 96.9 fL (80-100); Monocytes Absolute Auto 400 /uL (0-900); Monocytes Percent Auto 9.3 % (3-14); Neutrophils Absolute Auto 2800 /uL (1500-7000); Neutrophils Percent Auto 58.7 % (50-75); Platelet Count 247 X10^3/uL (150-400); Red Blood Cell Count 4.18 X10^6/uL (4.5-5.9); Red Cell Distribution Width 13.3 % (11.6-14.8); White Blood Cell Count 4.7 X10^3/uL (4.5-11.0)
[2023-06-24 09:50] LABS: Alanine Aminotransferase 26 IU/L (<50); Albumin 3.8 g/dL (3.5-5.0); Albumin Globulin Ratio 1.4 (1.0-2.8); Alkaline Phosphatase 60 U/L (38-126); Aspartate Aminotransferase 27 IU/L (17-59); BUN Creatinine Ratio 21.3 (6-22); Bilirubin Total 0.8 mg/dL (0.2-1.3); Blood Urea Nitrogen 23 mg/dL (9-20); Calcium 9.4 mg/dL (8.4-10.2); Carbon Dioxide 25 mmol/L (22-32); Chloride 110 mmol/L (98-107); Cholesterol 191 mg/dL (140-199); Estimated Glomerular Filt Rate > 60 mL/min (>60); Globulin 2.8 g/dL (1.7-4.1); Glucose 114 mg/dL (80-110); HDL Cholesterol 59 mg/dL (40-60); HEMOLYSIS < 15 (0-50); LDL Cholesterol Calculated 114 mg/dL (<100); Potassium 4.3 mmol/L (3.4-5.1); Sodium 139 mmol/L (137-145); Total Protein 6.6 g/dL (6.3-8.2); Triglycerides 88 mg/dL (35-150)
== END ==
PROVIDERS: PCP Family Medicine; Referring Provider Family Medicine; Visit Provider Family Medicine
DX: Z00.00 Encounter for general adult medical examination without abnormal findings (principal); E78.2 Mixed hyperlipidemia; Z12.5 Encounter for screening for malignant neoplasm of prostate
CPT/HCPCS: 36415; 80053; 80061; 85025; G0103

== ENCOUNTER → 2023-08-23 09:25 | Outpatient (CLI) | payer MEDICARE, SELFPAY ==
[2023-08-27 07:13] LABS: PSA Free % 27.6 % (.); PSA, Total 5.8 ng/mL (0.0-4.0)
== END ==
PROVIDERS: PCP Family Medicine; Referring Provider Family Medicine; Visit Provider Family Medicine
DX: Z98.890 Other specified postprocedural states (principal); R97.20 Elevated prostate specific antigen [PSA]
CPT/HCPCS: 36415; 84153; 84154

== ENCOUNTER → 2023-08-24 11:13 | Outpatient (CLI) | payer MEDICARE, SELFPAY ==
[2023-08-26 14:42] LABS: Fecal Immunochemical Test Negative (Negative)
== END ==
LOC: LAB 11:14
PROVIDERS: PCP Family Medicine; Referring Provider Family Medicine; Visit Provider Family Medicine
DX: Z12.11 Encounter for screening for malignant neoplasm of colon (principal); Z87.19 Personal history of other diseases of the digestive system
CPT/HCPCS: 82274

== ENCOUNTER → 2023-09-11 08:48 | Outpatient (CLI) | payer MEDICARE, SELFPAY ==
[2023-09-11 11:19] LABS: Influenza A - CEPHEID Flu A NEGATIVE (NEGATIVE); Influenza B - CEPHEID Flu B NEGATIVE (NEGATIVE); Respiratory Syncytial Virus Negative (Negative)
[2023-09-11 11:20] LABS: COVID-19 CEPHEID 4-PLEX PCR Negative (Negative)
== END ==
PROVIDERS: PCP Family Medicine; Visit Provider Physician Assistant
DX: R05.1 Acute cough (principal); J06.9 Acute upper respiratory infection, unspecified
CPT/HCPCS: 0241U

== ENCOUNTER → 2023-09-11 09:11 | Outpatient (CLI) | payer MEDICARE, SELFPAY ==
--- NOTE | 2023-09-11 09:12 | DI.RAD.S_ITS ---
PROCEDURE: XR CHEST 2V INDICATIONS: cough with green phlegm x 2 weeks TECHNIQUE: 2 views of the chest were acquired. COMPARISON: None. FINDINGS: Surgical changes and devices: None. Lungs and pleura: Lungs are clear. No pleural effusions or pneumothorax. Mediastinum: Mediastinal contours are normal. Heart size is normal. Bones and chest wall: No suspicious bony abnormalities. Soft tissues appear unremarkable. IMPRESSION: No acute cardiopulmonary abnormality is seen. Approved by: Addy Cast M.D. on 09/11/2023 at 20:26
== END ==
PROVIDERS: PCP Family Medicine; Referring Provider Physician Assistant; Visit Provider Physician Assistant
DX: J06.9 Acute upper respiratory infection, unspecified (principal); R05.1 Acute cough
CPT/HCPCS: 0241U; 71046

== ENCOUNTER → 2023-09-26 08:29 | Outpatient (CLI) | payer MEDICARE, SELFPAY ==
--- NOTE | 2023-09-26 08:38 | DI.RAD.S_ITS ---
PROCEDURE: XR CHEST 2V INDICATIONS: f/u on continued cough TECHNIQUE: 2 views of the chest were acquired. COMPARISON: [facility], CR, XR CHEST 2V, 09/11/2023, 9:12. FINDINGS: Surgical changes and devices: None. Lungs and pleura: Lungs are clear. No pleural effusions or pneumothorax. Mediastinum: Mediastinal contours are normal. Heart size is normal. Bones and chest wall: No suspicious bony abnormalities. Soft tissues appear unremarkable. IMPRESSION: No acute cardiopulmonary abnormality is seen. Approved by: Addy Cast M.D. on 09/26/2023 at 17:54
[2023-09-26 09:49] LABS: Influenza A - CEPHEID Flu A NEGATIVE (NEGATIVE); Influenza B - CEPHEID Flu B NEGATIVE (NEGATIVE); Respiratory Syncytial Virus Negative (Negative)
[2023-09-26 09:51] LABS: COVID-19 CEPHEID 4-PLEX PCR Negative (Negative)
== END ==
PROVIDERS: PCP Family Medicine; Referring Provider Physician Assistant; Visit Provider Physician Assistant
DX: J06.9 Acute upper respiratory infection, unspecified (principal); R05.1 Acute cough
CPT/HCPCS: 0241U; 71046

== ENCOUNTER → 2024-07-30 09:13 | Outpatient (CLI) | payer MEDICARE, SELFPAY ==
[2024-07-30 10:01] LABS: Add Manual Diff / Slide Review NO; Basophils Absolute Auto 0 /uL (0-100); Basophils Percent Auto 0.6 % (0-2); Eosinophils Absolute Auto 100 /uL (0-450); Eosinophils Percent Auto 2.9 % (2-4); Hematocrit 43.3 % (41-53); Hemoglobin 14.6 g/dL (13.5-17.5); Lymphocytes Absolute Auto 1100 /uL (1100-4500); Lymphocytes Percent Auto 22.7 % (25-40); Mean Corpuscular HGB Conc 33.8 % (30-36); Mean Corpuscular Hemoglobin 33.2 PG (26-34); Mean Corpuscular Volume 98.4 fL (80-100); Monocytes Absolute Auto 500 /uL (0-900); Monocytes Percent Auto 9.4 % (3-14); Neutrophils Absolute Auto 3200 /uL (1500-7000); Neutrophils Percent Auto 64.4 % (50-75); Platelet Count 293 X10^3/uL (150-400); Red Blood Cell Count 4.41 X10^6/uL (4.5-5.9); Red Cell Distribution Width 13.2 % (11.6-14.8); White Blood Cell Count 4.9 X10^3/uL (4.5-11.0)
[2024-07-30 10:06] LABS: Hemoglobin A1C% w Est Avg Glu 5.4 % (4.0-6.0)
[2024-07-30 10:19] LABS: Alanine Aminotransferase 32 IU/L (<50); Albumin 4.3 g/dL (3.5-5.0); Albumin Globulin Ratio 1.7 (1.0-2.8); Alkaline Phosphatase 87 U/L (38-126); Aspartate Aminotransferase 32 IU/L (17-59); BUN Creatinine Ratio 18.9 (6-22); Bilirubin Total 0.9 mg/dL (0.2-1.3); Blood Urea Nitrogen 21 mg/dL (9-20); Calcium 10.2 mg/dL (8.4-10.2); Carbon Dioxide 26 mmol/L (22-32); Chloride 106 mmol/L (98-107); Cholesterol 208 mg/dL (140-199); Estimated Glomerular Filt Rate > 60 mL/min (>60); Globulin 2.5 g/dL (1.7-4.1); Glucose 114 mg/dL (80-110); HDL Cholesterol 66 mg/dL (40-60); HEMOLYSIS < 15 (0-50); LDL Cholesterol Calculated 119 mg/dL (<100); Sodium 138 mmol/L (137-145); Total Protein 6.8 g/dL (6.3-8.2); Triglycerides 116 mg/dL (35-150)
[2024-07-30 10:21] LABS: Potassium 5.7 mmol/L (3.4-5.1)
[2024-07-30 10:49] LABS: Prostate Specific Antigen Scrn 6.16 ng/mL (0.1-4.0)
== END ==
PROVIDERS: PCP Family Medicine; Referring Provider Family Medicine; Visit Provider Family Medicine
DX: R97.20 Elevated prostate specific antigen [PSA] (principal); I10 Essential (primary) hypertension; E78.5 Hyperlipidemia, unspecified; Z12.5 Encounter for screening for malignant neoplasm of prostate; N40.1 Benign prostatic hyperplasia with lower urinary tract symptoms; G47.33 Obstructive sleep apnea (adult) (pediatric)
CPT/HCPCS: 36415; 80053; 80061; 83036; 85025; G0103

== ENCOUNTER → 2025-04-21 15:13 | Outpatient (CLI) | payer MEDICARE, SELFPAY ==
[2025-04-21 17:31] LABS: Prostate Specific Antigen 6.85 ng/mL (0.10-4.00)
== END ==
PROVIDERS: PCP Family Medicine; Referring Provider Family Medicine; Visit Provider Physician Assistant Medical
DX: R97.20 Elevated prostate specific antigen [PSA] (principal); R39.9 Unspecified symptoms and signs involving the genitourinary system; Z98.890 Other specified postprocedural states
CPT/HCPCS: 36415; 84153

== ENCOUNTER → 2025-06-30 17:29 | Outpatient (CLI) | payer MEDICARE, SELFPAY ==
[2025-06-30 18:45] LABS: Prostate Specific Antigen 10.2 ng/mL (0.10-4.00)
== END ==
PROVIDERS: PCP Family Medicine; Referring Provider Physician Assistant Medical; Visit Provider Physician Assistant Medical
DX: R97.20 Elevated prostate specific antigen [PSA] (principal)
CPT/HCPCS: 84153